=== PATIENT | female | born 1975 | race Two or more races ===

== ENCOUNTER 2023-01-27 15:08 | Emergency (ER) | payer OTHER ==
[~2023-01-27] VITALS: Ht 160 cm; Wt 54.4 kg
[2023-01-27 18:52] LABS: PH,URINE 5.5 (5.0-8.0); URINE APPEARANCE Clear; URINE BILIRRUBIN Negative (NEGATIVE); URINE BLOOD Moderate; URINE COLOR Yellow; URINE GLUCOSE Negative (NEGATIVE); URINE LEUKOCYTE Negative; URINE NITRATE Negative; URINE PROTEIN Trace (NEGATIVE)
[2023-01-27 18:55] LABS: HEMATOCRIT 40.8 % (36.0-45.00); HEMOGLOBIN 14.1 g/dL (12.0-15.00); MEAN CELL VOLUME 95.1 fL (80.00-100.00); MEAN CORPUSCULAR HEMOGLOBIN 32.9 pg (27.00-32.0); MEAN CORPUSCULAR HGB CONC 34.6 g/dl (32.0-36.0); PLATELET COUNT 385 K/uL (150-450); RED BLOOD COUNT 4.29 M/uL (4.00-6.00); RED CELL DISTRIBUTION WIDTH 13.5 % (11.5-14.5)
[2023-01-27 18:56] LABS: URINE BACTERIA 1524.4 uL (0.0-1933); URINE EPITHELIAL CELLS 24.8 uL (0.0-38.8); URINE RBC 106.3 uL (0.0-20.8); URINE WBC 10.3 uL (0.0-23.2)
[2023-01-27 19:20] LABS: ALBUMIN 4.2 gm/dL (3.4-5.0); ALKALINE PHOSPHATASE 88 U/L (50-136); ALT/SGPT 24 U/L (12-78); AMYLASE 55 U/L (25-115); ANION GAP 11 (10.0-20.0); AST/SGOT 13 U/L (15-37); BILIRUBIN TOTAL 0.58 mg/dL (0.3-1.2); BLOOD UREA NITROGEN 5 mg/dL (7-18); BUN CREA RATIO 8 (7.0-25.0); CALCIUM 9.1 mg/dL (8.5-10.1); CARBON DIOXIDE 27 mEq/L (21-32); CHLORIDE 104 mmol/L (98-107); CREATININE SERUM 0.59 mg/dL (0.55-1.02); GFR 109.25; GLUCOSE FASTING 83 mg/dL (65-100); LIPASE 14 U/L (13-75); OSMOLALITY SERUM 272 MOSM/KG (275-295); SODIUM 138 mmol/L (136-145); TOTAL PROTEIN 8.2 gm/dL (6.4-8.2)
[2023-01-27 19:21] LABS: HCG QUANTITATIVE < 1 mUI/mL (1-3)
== END 2023-01-28 | disposition home or self-care (01) ==
LOC: ER 15:08
PROVIDERS: General Practice
DX: K29.70 Gastritis, unspecified, without bleeding (principal); R10.9 Unspecified abdominal pain; R11.2 Nausea with vomiting, unspecified; T50.905A Adverse effect of unspecified drugs, medicaments and biological substances, initial encounter; Z20.822 Contact with and (suspected) exposure to COVID-19; N83.291 Other ovarian cyst, right side